=== PATIENT | male | born 1995 | race Hispanic/Latino ===

== ENCOUNTER 2022-03-15 23:02 | Emergency (ER) | payer MEDICARE ==
[~2022-03-15] VITALS: Ht 162.6 cm; Wt 77.1 kg
[2022-03-16 01:07] VITALS: BP 121/72
== END 2022-03-16 02:30 | disposition home or self-care (01) ==
LOC: EDH 23:02 → EDSEX 23:02 → EDH 03-16 02:30
DX: Z46.6 Encounter for fitting and adjustment of urinary device (principal)
CPT/HCPCS: 99281